=== PATIENT | female | born 1990 | race Caucasian/White ===

== ENCOUNTER 2017-05-10 09:09 | Outpatient (CLI) | payer OTHER | END 2017-05-10 10:03 | LOC: LAB 09:09 | PROVIDERS: ATTEND Nurse Practitioner Family | DX: E83.52 Hypercalcemia (principal) | CPT/HCPCS: 36415; 82330; 83970 ==

== ENCOUNTER 2017-09-20 13:26 | Outpatient (CLI) | payer SELFPAY ==
[2017-09-20 14:12] LABS: eGFR (African) > 60; eGFR (Non-African) > 60
== END 2017-09-20 13:27 ==
LOC: LAB 13:26
PROVIDERS: ATTEND Urology
DX: N20.0 Calculus of kidney (principal)
CPT/HCPCS: 36415; 80048

== ENCOUNTER 2018-03-04 10:43 | Outpatient (CLI) | payer OTHER ==
--- NOTE | 2018-03-04 11:24 | Diagnostic Imaging Report ---
LINUS SUE [facility] [address] [facility].[address] [id number] Report Submission Date: Mar 04, 2018 11:21:53 AM CDT Patient Study Name: AUGUST YATES Date: Mar 04, 2018 10:46:42 AM CDT Modality Type: DX Gender: F Description: LOWER EXTREMITY : 89 Institution: [facility] Physician: LINUS SUE Examination: Plain film feet History: PT STATES PAIN IN BILAT FEET FOR MANY YEARS. PT STATES WORSENING PAIN IN THE LAST 3 YEARS AND A DECREASE IN CIRCULATION (Hx Findings: 3 views of the right and left foot demonstrates normal cortical margins. No fracture or dislocation. Mild hallux valgus deformity right foot. No soft tissue swelling. No joint effusion. Impression: No acute osseous process. Mild hallux valgus deformity right foot. Electronically signed on Mar 04, 2018 11:21:53 AM CDT by: David TOM
== END 2018-03-04 10:45 ==
LOC: LAB 10:43
PROVIDERS: ATTEND Podiatrist Foot & Ankle Surgery
DX: M20.21 Hallux rigidus, right foot (principal)

== ENCOUNTER 2018-07-24 16:19 | Outpatient (CLI) | payer OTHER | END 2018-07-24 16:22 | LOC: LAB 16:19 | PROVIDERS: ATTEND Nurse Practitioner Family | DX: M13.0 Polyarthritis, unspecified (principal) | CPT/HCPCS: 36415; 85651; 86140; 86200; 86431 ==